=== PATIENT | female | born 1960 | race Caucasian/White ===

== ENCOUNTER 2020-04-13 12:27 | Emergency (ER) | payer BC, OTHER, SELFPAY ==
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
--- NOTE | ~2020-04-13 | CT_ITS ---
EXAMINATION: CT cervical spine wo con DATE: 04/13/2020 13:47 INDICATION: Head injury. TECHNIQUE: Computed tomography (CT) of the cervical spine was performed without intravenous contrast. Automated exposure control and iterative reconstruction technique were employed. The dose-length pro duct was 414.70 mGy-cm. COMPARISON: None FINDINGS: There is 5 degrees levocurvature of cervical spine. Vertebral body heights are normal. Ther e is mildly decreased disc height at C4-C5 and C5-C6. The following disc levels are specifically disc ussed: C2-C3: There is no uncovertebral joint osteoarthritis. There is ankylosis of the facet joints with mi ld hypertrophy. There is no neural foraminal stenosis. There is no central canal stenosis. C3-C4: There is mild left uncovertebral joint osteoarthritis. There is moderate right and severe left facet joint osteoarthritis. There is mild left neural foraminal stenosis. There is no central canal stenosis. C4-C5: There is mild right and severe left uncovertebral joint osteoarthritis. There is moderate righ t and severe left facet joint osteoarthritis. There is mild left neural foraminal stenosis. There is mild central canal stenosis. C5-C6: There is moderate right and mild left uncovertebral joint osteoarthritis. There is severe righ t and mild left facet joint osteoarthritis. There is no neural foraminal stenosis. There is mild cent ral canal stenosis. C6-C7: There is mild bilateral uncovertebral joint osteoarthritis. There is mild right facet joint os teoarthritis. There is no neural foraminal stenosis. There is no central canal stenosis. C7-T1: There is no uncovertebral joint osteoarthritis. There is mild bilateral facet joint osteoarthr itis. There is no neural foraminal stenosis. There is no central canal stenosis. IMPRESSION: 1. No fracture. 2. Mild cervical spondylosis. Reviewed, dictated and finalized at location A.
[2020-04-13 12:54] VITALS: PULSE 108; RESP 18; TEMP 36.8; O2SAT 96
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
[2020-04-13 14:19] VITALS: PULSE 98
[2020-04-13 14:42] VITALS: BP 119/70; PULSE 95; RESP 23; O2SAT 100
[2020-04-13 16:02] VITALS: BP 109/84; PULSE 99; RESP 16; O2SAT 98
== END 2020-04-13 15:00 | disposition short-term general hospital (02) ==
PROVIDERS: Emergency Provider Emergency Medicine
DX: S06.6X9A Traumatic subarachnoid hemorrhage with loss of consciousness of unspecified duration, initial encounter (principal); S02.0XXA Fracture of vault of skull, initial encounter for closed fracture; Z87.891 Personal history of nicotine dependence; F90.9 Attention-deficit hyperactivity disorder, unspecified type; Z90.81 Acquired absence of spleen; M47.812 Spondylosis without myelopathy or radiculopathy, cervical region; V18.4XXA Pedal cycle driver injured in noncollision transport accident in traffic accident, initial encounter; Y93.55 Activity, bike riding
CPT/HCPCS: 70450; 72125; 99291